=== PATIENT | female | born 1965 | race African-American/Black ===

== ENCOUNTER 2017-03-19 06:30 | Day surgery (SDC) | payer BC, OTHER ==
[~2017-03-19] VITALS: Ht 167.6 cm; Wt 65.9 kg
[2017-03-19] VITALS (12 sets, daily range): BP systolic 125–163; BP diastolic 72–94; PULSE 47–74; TEMP 98.3
[~2017-03-19 06:30] MED LIST: ABILIFY2 MG PO; ASPIR-LOW81 MG PO; ASPIRIN E.C. 8181 MG PO; ATIVAN 0.50.5 MG/TAB PO; ATIVAN1 MG PO; BIAXIN 500MG T500 MG PO; BONIVA1 MG/ML MR; CENESTIN0.45 MG PO; CYCLOBENZAPRINE10 MG PO; HCTZ 25MG TAB25 MG PO; HCTZ 25MG25 MG PO; KLONOPIN 0.5MG0.5 MG PO; MOTRIN800 MG PO; MUCINEX600 M1 PO; MVI; NEPHRO-VITE1 TA1 PO; NEXIUM40 MG PO; PHENERGAN W/CO120 ML PO; PLAQUENIL 200M200 MG PO; PLAQUENIL PO; PRENATAL MVI PO; PRENATAL1 TA4 PO; SEROQUEL; TOPROL; TOPROL XL25 MG PO; TYLENOL 500MG500 MG PO; ULTRAM 50MG TAB50 MG PO; VITAMIN D1000 IU PO; [UNRECOGNIZED DRUG - OTHER] IH
[2017-03-19 06:54] LABS: HEMATOCRIT 37.9 % (37.0-47.0); HEMOGLOBIN 12.4 g/dl (12.5-16.0); MEAN CELL VOLUME 89 fl (80.0-100.0); MEAN CORPUSCULAR HEMOGLOBIN 29 pg (27.0-31.0); MEAN CORPUSCULAR HGB CONC 33 g/dl (33.0-37.0); MEAN PLATELET VOLUME 9.4 fl (7.4-10.4); PLATELET COUNT 245 K/mm3 (130-400); RED BLOOD COUNT 4.26 M/mm3 (4.10-5.30); WHITE BLOOD COUNT 3.2 K/mm3 (4.8-10.8)
[2017-03-19 06:58] LABS: PROTHROMBIN TIME 11.3 SECONDS (9.7-12.8)
[2017-03-19 07:03] LABS: CALCIUM 9.7 mg/dL (8.4-10.2); CREATININE, serum 0.82 mg/dL (0.52-1.25); POTASSIUM 4.1 mmol/L (3.4-5.0)
[2017-03-19] MEDS ORDERED: ASPIRIN 81M81 MG/TA2 PO (07:03)
[2017-03-19] MEDS ORDERED: FOLIC ACID 11 MG/TA1 PO (07:06)
[2017-03-19] MEDS ORDERED: NEURONTIN600 MG/TAB PO (07:07)
[2017-03-19] MEDS ORDERED: METHOTREXA2.5 MG/TAB PO (07:30)
[2017-03-19] MEDS ORDERED: VITAMIN C500 MG PO (07:31)
== END 2017-03-19 15:15 | disposition home or self-care (01) ==
LOC: COL.CAR 06:30
PROVIDERS: Internal Medicine Cardiovascular Disease
DX: R09.02 Hypoxemia (principal); I27.2 Other secondary pulmonary hypertension; R06.02 Shortness of breath
CPT/HCPCS: C1725; C1760; J2250; J3010; Q9967

== ENCOUNTER → 2017-04-10 | Outpatient (CLI) | payer BC, OTHER ==
[~2017-04-10] MED LIST changes: +ASPIRIN 81M81 MG/TA2 PO; +FOLIC ACID 11 MG/TA1 PO; +METHOTREXA2.5 MG/TAB PO; +NEURONTIN600 MG/TAB PO; +VITAMIN C500 MG PO
== END ==
LOC: COL.VAS 10:44
DX: I36.1 Nonrheumatic tricuspid (valve) insufficiency (principal); I31.3 Pericardial effusion (noninflammatory)

== ENCOUNTER → 2017-08-30 | Outpatient (CLI) | payer BC, OTHER | LOC: MC.RAD 14:40 | DX: Z12.31 Encounter for screening mammogram for malignant neoplasm of breast (principal) ==

== ENCOUNTER 2018-01-24 14:37 | Outpatient (RCR) | payer OTHER | END 2018-02-21 14:23 | disposition home or self-care (01) | LOC: WSOH 14:37 | DX: M19.041 Primary osteoarthritis, right hand (principal); W10.8XXA Fall (on) (from) other stairs and steps, initial encounter; Y92.214 College as the place of occurrence of the external cause; Y99.0 Civilian activity done for income or pay ==

== ENCOUNTER → 2018-06-25 | Outpatient (CLI) | payer BC, OTHER | LOC: COL.RAD 14:31 | DX: M99.73 Connective tissue and disc stenosis of intervertebral foramina of lumbar region (principal); M48.061 Spinal stenosis, lumbar region without neurogenic claudication; M51.27 Other intervertebral disc displacement, lumbosacral region ==

== ENCOUNTER → 2018-09-29 | Outpatient (CLI) | payer BC, OTHER | LOC: MC.RAD 14:56 | DX: Z12.31 Encounter for screening mammogram for malignant neoplasm of breast (principal); Z98.890 Other specified postprocedural states ==

== ENCOUNTER → 2019-10-19 | Outpatient (CLI) | payer BC, OTHER | LOC: MC.RAD 14:41 | DX: Z12.31 Encounter for screening mammogram for malignant neoplasm of breast (principal) ==

== ENCOUNTER → 2020-08-29 | Outpatient (CLI) | payer BC, OTHER | LOC: COL.RAD 14:04 | DX: E27.8 Other specified disorders of adrenal gland (principal) | CPT/HCPCS: Q9967 ==

== ENCOUNTER → 2020-10-20 | Outpatient (CLI) | payer BC | LOC: MC.RAD 14:59 | DX: Z12.31 Encounter for screening mammogram for malignant neoplasm of breast (principal) ==

== ENCOUNTER → 2021-05-15 | Outpatient (CLI) | payer BC, OTHER | LOC: COL.CARD 07:50 | DX: I10 Essential (primary) hypertension (principal) ==

== ENCOUNTER → 2021-10-23 | Outpatient (CLI) | payer BC, OTHER | LOC: MC.RAD 14:36 | DX: Z12.31 Encounter for screening mammogram for malignant neoplasm of breast (principal) ==

== ENCOUNTER 2021-11-16 14:28 | Outpatient (RCR) | payer OTHER | END 2021-11-20 | LOC: WSOH | DX: S50.11XA Contusion of right forearm, initial encounter (principal); Y99.0 Civilian activity done for income or pay; M35.00 Sjogren syndrome, unspecified; M79.7 Fibromyalgia; Z90.710 Acquired absence of both cervix and uterus; Z98.890 Other specified postprocedural states ==

== ENCOUNTER 2022-05-30 02:17 | Emergency (ER) | payer BC, OTHER ==
[~2022-05-30] VITALS: Ht 170.2 cm; Wt 66.8 kg
[2022-05-30 02:24] VITALS: TEMP 99
[2022-05-30 02:47] LABS: BASO % 0.9 % (0.0-2.0); EOS % 0.7 % (0.0-4.0); GRAN # 2.2 K/mm3 (1.4-6.5); GRAN % 49.9 % (42.2-75.2); HEMATOCRIT 36.5 % (37.0-47.0); HEMOGLOBIN 12.3 g/dl (12.5-16.0); LYMPH # 1.5 K/mm3 (1.2-3.4); LYMPH % 33.5 % (20.0-51.0); MEAN CELL VOLUME 82 fl (80.0-100.0); MEAN CORPUSCULAR HEMOGLOBIN 28 pg (27-31); MEAN CORPUSCULAR HGB CONC 34 g/dl (33.0-37.0); MEAN PLATELET VOLUME 9.2 fl (7.4-10.4); MONO # 0.7 K/mm3 (0.1-0.6); MONO % 14.8 % (1.7-9.3); PLATELET COUNT 261 K/mm3 (130-400); RED BLOOD COUNT 4.47 M/mm3 (4.10-5.30); REDCELL DISTRIBUTION WIDTH-CV 13.2 % (11.5-14.5)
[2022-05-30 03:01] LABS: ALANINE AMINOTRANSFERASE 23 U/L (0-55); ALBUMIN 4.1 gm/dL (3.5-5.0); ALKALINE PHOSPHATASE 70 U/L (40-150); ANION GAP 11 mmol/L (7-16); AST,SGOT 23 U/L (5-34); BILIRUBIN,TOTAL 0.4 mg/dL (0.2-1.2); BLOOD UREA NITROGEN 12 mg/dL (10-20); CALCIUM 9.7 mg/dL (8.4-10.2); CARBON DIOXIDE 24 mmol/L (22-29); CHLORIDE 104 mmol/L (98-107); CREATININE, serum 0.85 mg/dL (0.57-1.11); GLUCOSE 112 mg/dL (70-99); POTASSIUM 3.2 mmol/L (3.5-4.5); SODIUM 139 mmol/L (136-145); TOTAL PROTEIN 7.6 gm/dL (6.2-8.1)
[2022-05-30 03:01] LABS: COLLECTION METHOD CLEAN CATCH
[2022-05-30 03:06] LABS: ACETAMINOPHEN < 1.0 ug/mL (10-30); ALCOHOL(ethanol),MEDICAL < 10 mg/dL (0-10); SALICYLATE < 5.0 mg/dL (15.0-30.0)
[2022-05-30 03:10] LABS: URINE APPEARANCE Clear (CLEAR/HAZY); URINE BACTERIA Rare /hpf (NONE SEEN); URINE COLOR Yellow (YELLOW); URINE GLUCOSE Negative (NEGATIVE); URINE KETONE TRACE (NEGATIVE); URINE PROTEIN(semi-quant) TRACE (NEGATIVE)
[2022-05-30 03:11] LABS: URINE BLOOD Negative (NEGATIVE); URINE NITRATE Negative (NEGATIVE); URINE UROBILINOGEN 0.2 (NEGATIVE)
[2022-05-30 03:19] LABS: TRICYCLIC ANTIDEPRESS URINE POSITIVE
[2022-05-30] MEDS ORDERED: ZYPREXA10 MG PO (05:54)
[2022-05-30 06:05] VITALS: BP 144/78; PULSE 76
== END 2022-05-30 06:06 | disposition home or self-care (01) ==
LOC: COL.ER 02:17
PROVIDERS: Emergency Medicine
DX: F31.12 Bipolar disorder, current episode manic without psychotic features, moderate (principal); R31.9 Hematuria, unspecified; Z20.822 Contact with and (suspected) exposure to COVID-19

== ENCOUNTER 2022-06-04 14:10 | Emergency (ER) | payer BC, OTHER ==
[~2022-06-04] VITALS: Ht 167.6 cm; Wt 68.6 kg
[~2022-06-04 14:10] MED LIST changes: +ZYPREXA10 MG PO
[2022-06-04 15:40] VITALS: TEMP 99.3
[2022-06-04 16:44] LABS: COLLECTION METHOD CLEAN CATCH
[2022-06-04 16:59] LABS: URINE APPEARANCE Clear (CLEAR/HAZY); URINE BLOOD Negative (NEGATIVE); URINE COLOR Yellow (YELLOW); URINE GLUCOSE Negative (NEGATIVE); URINE KETONE Negative (NEGATIVE); URINE NITRATE Negative (NEGATIVE); URINE PROTEIN(semi-quant) Negative (NEGATIVE); URINE UROBILINOGEN 0.2 E.U/dL (0.2-1.0)
[2022-06-04 17:01] LABS: SQUAMOUS EPITHELIAL None Seen /hpf (0-10); URINE BACTERIA Rare /hpf (NONE SEEN); URINE RBC 0-2 /hpf (0-2)
[2022-06-04 17:10] LABS: TRICYCLIC ANTIDEPRESS URINE NEGATIVE
[2022-06-04 17:22] LABS: BASO % 0.5 % (0.0-2.0); EOS % 0.5 % (0.0-4.0); GRAN # 2.9 K/mm3 (1.4-6.5); GRAN % 68.7 % (42.2-75.2); HEMATOCRIT 36.8 % (37.0-47.0); HEMOGLOBIN 12.3 g/dl (12.5-16.0); LYMPH # 0.8 K/mm3 (1.2-3.4); LYMPH % 18.8 % (20.0-51.0); MEAN CELL VOLUME 83 fl (80.0-100.0); MEAN CORPUSCULAR HEMOGLOBIN 28 pg (27-31); MEAN CORPUSCULAR HGB CONC 33 g/dl (33.0-37.0); MEAN PLATELET VOLUME 9.7 fl (7.4-10.4); MONO # 0.5 K/mm3 (0.1-0.6); MONO % 11.3 % (1.7-9.3); PLATELET COUNT 251 K/mm3 (130-400); RED BLOOD COUNT 4.43 M/mm3 (4.10-5.30); REDCELL DISTRIBUTION WIDTH-CV 13.3 % (11.5-14.5)
[2022-06-04 17:40] LABS: ALANINE AMINOTRANSFERASE 19 U/L (0-55); ALKALINE PHOSPHATASE 68 U/L (40-150); ANION GAP 12 mmol/L (7-16); AST,SGOT 24 U/L (5-34); BILIRUBIN,TOTAL 0.5 mg/dL (0.2-1.2); BLOOD UREA NITROGEN 8 mg/dL (10-20); CALCIUM 9.8 mg/dL (8.4-10.2); CARBON DIOXIDE 26 mmol/L (22-29); CHLORIDE 100 mmol/L (98-107); GLUCOSE 124 mg/dL (70-99); SODIUM 138 mmol/L (136-145); TOTAL PROTEIN 7.7 gm/dL (6.2-8.1)
[2022-06-04 17:41] LABS: POTASSIUM 2.9 mmol/L (3.5-4.5)
[2022-06-04 18:28] LABS: TSH w REFLEX 0.587 uIU/mL (0.350-4.940)
[2022-06-04 18:29] LABS: ALCOHOL(ethanol),MEDICAL < 10 mg/dL (0-10); SALICYLATE < 5.0 mg/dL (15.0-30.0)
[2022-06-04 21:05] VITALS: BP 132/83; PULSE 89
== END 2022-06-04 21:10 | disposition home or self-care (01) ==
LOC: COL.ER 14:10
PROVIDERS: Physician Assistant
DX: F23 Brief psychotic disorder (principal); Z20.822 Contact with and (suspected) exposure to COVID-19

== ENCOUNTER 2024-05-18 12:21 | Emergency (ER) | payer OTHER ==
[~2024-05-18] VITALS: Ht 167.6 cm; Wt 77.3 kg
[2024-05-18 12:26] VITALS: BP 161/92; TEMP 98.1
[2024-05-18 15:35] VITALS: PULSE 76
== END 2024-05-18 18:08 | disposition home or self-care (01) ==
LOC: COL.ER 12:21
DX: S61.215A Laceration without foreign body of left ring finger without damage to nail, initial encounter (principal); Z23 Encounter for immunization; W26.0XXA Contact with knife, initial encounter